=== PATIENT | female | born 1990 | race Caucasian/White ===

== ENCOUNTER 2021-07-02 15:25 | Emergency (ER) | payer BC ==
[~2021-07-02] VITALS: Ht 165.1 cm; Wt 104.5 kg
[~2021-07-02 15:25] MED LIST: ATIVAN 0.50.5 MG/TAB PO; LORTAB 5/500 501 TAB PO; MOTRIN600 MG PO; NO HOME MEDICATIONS; NORCO 325 MG-51 TAB PO; PHENERGAN 25 TA25 MG PO; PRENATAL1 TA1 PO; PRENATAL1 TA2 PO; VIT B-6100 MG PO; ZOFRAN 4MG T4 MG/TAB PO
[2021-07-02 17:22] LABS: BASO # 0.1 K/mm3 (0.0-0.2); BASO % 0.5 % (0.0-2.0); EOS # 0.7 K/mm3 (0.0-0.7); EOS % 4.7 % (0.0-4.0); GRAN # 10.1 K/mm3 (1.4-6.5); GRAN % 67.6 % (42.2-75.2); HEMOGLOBIN 12.1 g/dl (12.5-16.0); LYMPH # 2.9 K/mm3 (1.2-3.4); LYMPH % 19.4 % (20.0-51.0); MEAN CELL VOLUME 86 fl (80.0-100.0); MEAN CORPUSCULAR HEMOGLOBIN 28 pg (27-31); MEAN CORPUSCULAR HGB CONC 33 g/dl (33.0-37.0); MEAN PLATELET VOLUME 10.9 fl (7.4-10.4); MONO # 1.1 K/mm3 (0.1-0.6); MONO % 7.1 % (1.7-9.3); PLATELET COUNT 398 K/mm3 (130-400); RED BLOOD COUNT 4.28 M/mm3 (4.10-5.30); REDCELL DISTRIBUTION WIDTH-CV 14.1 % (11.5-14.5)
[2021-07-02 17:28] LABS: HEMATOCRIT 36.9 % (37.0-47.0)
[2021-07-02 17:31] LABS: BILIRUBIN,TOTAL 0.2 mg/dL (0.2-1.2); C-REACTIVE PROTEIN 1.56 mg/dL (0.00-0.50); CALCIUM 9.9 mg/dL (8.4-10.2); CREATININE, serum 0.68 mg/dL (0.57-1.11); POTASSIUM 4.9 mmol/L (3.5-4.5); TOTAL PROTEIN 7.3 gm/dL (6.2-8.1)
[2021-07-02 18:49] LABS: COLLECTION METHOD CLEAN CATCH
[2021-07-02 18:57] LABS: PH 6 (5-8); SQUAMOUS EPITHELIAL 0-2 /hpf (0-10); URINE APPEARANCE Clear (CLEAR/HAZY); URINE BACTERIA None Seen /hpf (NONE SEEN); URINE BILIRUBIN Negative (NEGATIVE); URINE BLOOD 3+ (NEGATIVE); URINE COLOR Straw (YELLOW); URINE GLUCOSE Negative (NEGATIVE); URINE KETONE Negative (NEGATIVE); URINE LEUKOCYTE ESTERASE Negative (NEGATIVE); URINE NITRATE Negative (NEGATIVE); URINE PROTEIN(semi-quant) Negative (NEGATIVE); URINE RBC >50 /hpf (0-2); URINE UROBILINOGEN Negative (NEGATIVE)
[2021-07-02 19:30] VITALS: BP 140/96; PULSE 98; TEMP 98.2
== END 2021-07-02 19:30 | disposition home or self-care (01) ==
LOC: COL.ER 15:25
PROVIDERS: Nurse Practitioner
DX: N99.821 Postprocedural hemorrhage of a genitourinary system organ or structure following other procedure (principal)
CPT/HCPCS: J7030